=== PATIENT | male | born 1940 | race Caucasian/White ===

== ENCOUNTER 2018-04-22 11:06 | Emergency (ER) | payer MEDICARE, BC ==
[~2018-04-22] VITALS: Ht 182.9 cm; Wt 90.7 kg
[~2018-04-22 11:06] MED LIST: ALBUTEROL2.5 MG/0.5 IH; ALBUTEROL2.5 MG/3 M INH; APRISO0.375 GM PO; ATIVAN0.5 MG PO; AZATHIOPRINE50 MG PO; CEFTIN 250 MG250 MG PO; DILANTIN100 MG PO; DILANTIN30 MG PO; FISH OIL 1,001000 M2 PO; IMURAN 50MG TAB50 M1 PO; LEVAQUIN 500 M500 M2 PO; MUCINEX TA600 MG/TA2 PO; PREDNISONE 10 M10 MG PO; PROTONIX40 M1 PO; PROVENTIL HFA6.7 G1 INH; Phenytoin PO; SERTRALINE HCL50 MG PO; SPIRIVA INH; SYMBICORT160 MCG/4. INH; TRIAMCINOLONE A80 G2 TOP; TUMS PO; VENTOLIN HFA 1818 GM INH; VITAMIN D1000 UNI1 PO; VITAMIN D35000 UNI1 PO
[2018-04-22 11:35] LABS: ABSOLUTE BASOPHILS 0.1 thou/uL (0.0-0.2); ABSOLUTE EOSINOPHILS 0.2 thou/uL (0.0-0.7); ABSOLUTE MONOCYTES 1.1 thou/uL (0.0-1.2); BASOPHILS 0.6 %; EOSINOPHILS 2.1 %; HEMATOCRIT 43.3 % (42.0-52.0); HEMOGLOBIN 13.9 gm/dL (14.0-18.0); LYMPHOCYTES 10.3 %; MCH 28.1 pg (26.0-34.0); MCHC 32.1 g/dL (28.0-37.0); MCV 87.6 fL (80.0-100.0); NUCLEATED RBCS 0 /100WBC; PLATELET COUNT* 242 thou/uL (150-400); RBC 4.94 mil/uL (4.50-6.00); RDW-CV 16.3 % (10.5-14.5); WBC 9.4 thou/uL (4.0-11.0)
[2018-04-22 11:41] LABS: ANION GAP 4 mmol/L (7-16); BUN 23 mg/dL (7-18); CALCIUM 8.8 mg/dL (8.5-10.1); CHLORIDE 105 mmol/L (98-107); CO2 32 mmol/L (21-32); CREATININE 1.3 mg/dL (0.6-1.3); GLUCOSE 126 mg/dL (70-99); POTASSIUM 4.2 mmol/L (3.5-5.1); SODIUM 141 mmol/L (136-145)
[2018-04-22 11:51] LABS: ALBUMIN 3.4 g/dL (3.4-5.0); ALKALINE PHOSPHATASE 95 U/L (46-116); LIPASE 70 U/L (73-393); NT-PRO BRAIN NAT PEPTIDE 267 pg/mL (<300); SGOT 17 U/L (15-37); SGPT 22 U/L (30-65); TOTAL BILIRUBIN 0.3 mg/dL (<0.1-1.0); TOTAL PROTEIN 7.6 g/dL (6.4-8.2); TROPONIN-I LEVEL <0.06 ng/mL (<0.06)
[2018-04-22] MEDS ORDERED: VITAMIN D1000 UNI1 PO (12:15)
[2018-04-22 12:26] VITALS: BP 109/64
--- NOTE | 2018-04-22 14:55 | EKG ---
[place] [address] ELECTROCARDIOGRAM REPORT Name: KENN VILLEDA Room: [facility]#: [id number] Admission: 04/22/18 Attend Phys: Discharge: 04/22/18 Date of : 40 Report #: [id number] THIS REPORT FOR: //name// [facility] ED Test Date: 2018-04-22 Test Time: 11:16:33 Pat Name: KENN VILLEDA Department: Room: Gender: Product Scientist: Lia GARCIA : 1940 Requested By: Tony Conn Order Number: [id number] MD: Wily Galaviz Measurements Intervals [place] Rate: 90 P: [place]: QRS: 70 QRSD: 92 T: 36 QT: 330 QTc: 404 Interpretive Statements Sinus rhythm Low voltage, precordial leads Compared to ECG 03/17/2017 15:39:11 Sinus tachycardia no longer present Electronically Signed On 04-22-2018 14:55:05 CDT by Wily Galaviz [email or web address] <ELECTRONICALLY SIGNED> By: Wily Galaviz MD, [facility] 04/22/18 1455 D: [id number] Wily Galaviz MD, FACC /EPI
== END 2018-04-22 12:28 | disposition home or self-care (01) ==
LOC: M.ERS 11:06
PROVIDERS: Emergency Medicine
DX: R53.1 Weakness (principal); R51 Headache; R00.0 Tachycardia, unspecified; J44.9 Chronic obstructive pulmonary disease, unspecified; G40.909 Epilepsy, unspecified, not intractable, without status epilepticus; Z88.8 Allergy status to other drugs, medicaments and biological substances